=== PATIENT | female | born 1945 | race Caucasian/White ===

== ENCOUNTER → 2020-10-31 | Day surgery (SDC) | payer MEDICARE ==
[~2020-10-31] MED LIST: ASPIRIN CHEWABL81 MG PO; HCTZ25 MG PO; MELOXICAM15 MG PO; OXYCODONE-ACET1 EAC1 PO; PRIMLEV 5-3001 EACH PO; XARELTO10 MG PO; ZOFRAN8 MG PO; ZOLOFT50 MG PO
[2020-10-31 08:16] LABS: HCT 44.1 % (37.0-47.0); HGB 14.9 g/dl (12.5-16.0); MCHC 33.8 g/dL (32.0-36.0); MCV 88.9 fL (78.0-100.0); MPV 9.8 fL (6.0-9.5); RBC 4.96 M/uL (4.20-5.40); WBC 6.2 K/uL (4.0-10.5)
[2020-10-31 08:17] LABS: ALBUMIN 3.9 g/dL (3.4-5.0); BILIRUBIN - TOTAL 0.7 mg/dL (0.2-1.0); BUN/CREAT RATIO (CALC) 22.1 RATIO; CREATININE 0.68 mg/dL (0.51-0.95); GLOBULIN (CALCULATION) 3.3 g/dL; POTASSIUM 3.5 mmol/L (3.5-5.1); TOTAL PROTEIN 7.2 g/dL (6.4-8.2)
== END | disposition home or self-care (01) ==
LOC: FAS 07:07
PROVIDERS: Surgery
DX: Z12.11 Encounter for screening for malignant neoplasm of colon (principal); Z86.010 Personal history of colon polyps; I10 Essential (primary) hypertension; M19.90 Unspecified osteoarthritis, unspecified site; Z20.822 Contact with and (suspected) exposure to COVID-19; Z98.51 Tubal ligation status; Z96.651 Presence of right artificial knee joint; Z95.9 Presence of cardiac and vascular implant and graft, unspecified; Z98.890 Other specified postprocedural states; Z87.891 Personal history of nicotine dependence
CPT/HCPCS: 36415; 80053; J0690; J1610; J2250; J2704; J7120